=== PATIENT | male | born 1990 | race Caucasian/White ===

== ENCOUNTER 2018-09-01 14:51 | Inpatient (IN) ==
--- NOTE | 2018-09-01 14:53 | Emergency Department Note ---
ED Disposition Clinical Impression: Hyperkalemia Diabetic ketoacidosis Qualifiers: Diabetes mellitus type: type 1 Diabetes mellitus complication detail: without coma Qualified Code(s): E10.10 - Type 1 diabetes mellitus with ketoacidosis without coma Disposition: Admitted As Inpatient Condition on Discharge: Serious - Critical Care Critical Care Time: Yes Attestation: On , the high probability of a clinically significant, sudden or life threatening deterioration of the following system(s) required my full and direct attention, intervention and personal management. The time I documented below is in addition to time spent performing reported procedures but includes the following listed in this critical care notation. Total Critical Care Time: 35 Vital system(s) involved:: Metabolic Failure My critical care processes included: Assessment & monitoring of V/S, Initial and Re-exams, Data Review/Interpretation, Coordinating Care, Medication Orders and management, Documentation Medical Decision Making - Jean Inquiry Pt receiving controlled substance: No Vital Signs: 09/01/18 14:52 09/01/18 15:22 09/01/18 16:08 Temperature 98.1 F Temperature Source Oral Pulse Rate [Left Radial] 128 H 128 H 120 H Respiratory Rate 28 H 16 Blood Pressure [Right Arm] 156/85 H 143/99 H 139/73 Blood Pressure Mean [Right Arm] 108 113 95 Blood Pressure Source [Right Arm] Automatic Cuff Automatic Cuff Automatic Cuff Blood Pressure Position [Right Arm] Sitting Sitting Sitting 02 Sat by Pulse Oximetry 98 99 Oxygen Delivery Method Room Air Room Air 09/01/18 16:31 09/01/18 16:36 Temperature Temperature Source Pulse Rate [Left Radial] 115 H 115 H Respiratory Rate Blood Pressure [Right Arm] 132/74 119/64 Blood Pressure Mean [Right Arm] 93 82 Blood Pressure Source [Right Arm] Automatic Cuff Blood Pressure Position [Right Arm] Sitting Sitting 02 Sat by Pulse Oximetry Oxygen Delivery Method - Lab Data Lab Results 09/01/18 14:50: WBC 25.1 H*, RBC 5.62, Hgb 18.5 H*, Hct 53.9 H, MCV 96.0 H, MCH 32.9 H, MCHC 34.3, RDW 12.9, Plt Count 335, MPV 8.2, Neut % (Auto) 83.9 H, Lymph % (Auto) 9.1 L, [place] % (Auto) 6.5, Eos % (Auto) 0.1, Baso % (Auto) 0.4, Neut # (Auto) 21.1 H, Lymph # (Auto) 2.3, [place] # (Auto) 1.6 H, Eos # (Auto) 0.0, Baso # (Auto) 0.1, Total Counted 100, Neutrophils % (Manual) 82 H, Band Neutrophils % 7.0, Lymphocytes % (Manual) 7 L, Monocytes % (Manual) 4, Platelet Estimate Normal, RBC Morphology Normal 09/01/18 14:50: Sodium 128 L, Potassium 6.0 H, Chloride 87 L, Carbon Dioxide 8 L*, Anion Gap 39.0 H, BUN 34 H, Creatinine 2.20 H, Estimated Creat Clear 47, Estimated GFR 36 L, Est GFR ( Amer) 43 L, Glucose 780 H*, Calcium 9.6, T otal Bilirubin 0.8, AST 48 H, ALT 189 H, Alkaline Phosphatase 92, Troponin I < 0.02, Total Protein 8.8 H, Albumin 4.9, Globulin 3.9 H, Albumin/Globulin Ratio 1.3, Acetone Level Moderate 09/01/18 14:50: Phosphorus 7.8 H, Magnesium 2.7 H, Lipase 40 L 09/01/18 15:02: VBG pH 6.99 L, VBG pCO2 29.0 L, VBG pO2 108.0 H, VBG HCO3 6.9 L, VBG Total CO2 7.8 L, VBG O2 Saturation 96.8 H, VBG Base Excess -24.5 L 09/01/18 15:38: Urine Opiates Screen Negative, Urine Methadone Screen Negative, Ur Barbituates Screen Negative, Ur Phencyclidine Scrn Negative, Ur Amphetamines Screen Negative, U Benzodiazepines Scrn Negative, Urine Cocaine Screen Negative, U Marijuana (THC) Screen Negative 09/01/18 15:38: Urine Color Yellow, Urine Appearance Clear, Urine pH 6.0, Ur Specific [place] 1.025, Urine Protein Negative, Urine Glucose (UA) 3+, Urine Ketones 3+, Urine Blood Trace-i, Urine Nitrate Negative, Urine Bilirubin Negative, Urine Urobilinogen 0.2, Ur Leukocyte Esterase Negative, Urine WBC Occasional, Ur Squamous Epith Cells Occasional, Urine Bacteria Trace 09/01/18 15:50: Lactate 5.3 H Result diagrams: 09/01/18 14:50 09/01/18 14:50 Orders (Tests/Meds): ED MEDICATIONS Generic Name Dose Route Start Last Admin Trade Name Freq PRN Reason Stop Dose Admin Insulin Human Regular 100 unit 101 mls @ 6.643 mls/hr 09/01/18 15:30 09/01/18 16:05 / Sodium Chloride IV 10/01/18 15:29 6.643 mls/hr .[id number] SHOAIB Administration Protocol 0.1 UNITS/KG/HR Sodium Chloride 1,000 mls @ 999 mls/hr 09/01/18 15:45 09/01/18 15:51 Sod Chlor 0.9% 1000ml Bag IV 09/01/18 16:45 999 mls/hr .Q1H1M SHOAIB Administration Sodium Chloride 1,000 mls @ 150 mls/hr 09/01/18 16:15 09/01/18 16:25 Sod Chlor 0.9% 1000ml Bag IV 10/01/18 16:14 150 mls/hr .[id number] SHOAIB Administration Discontinued Medications Generic Name Dose Route Start Last Admin Trade Name Freq PRN Reason Stop Dose Admin Sodium Chloride 1,000 mls @ 999 mls/hr 09/01/18 15:00 09/01/18 15:02 Sod Chlor 0.9% 1000ml Bag IV 09/01/18 16:00 999 mls/hr .Q1H1M SHOAIB Administration Insulin Human Regular 5 unit 09/01/18 15:28 09/01/18 15:40 Humulin R Insulin 100 Units/Ml 10ml Vial IVP 09/01/18 15:29 5 unit ONCE ONE Administration Ondansetron HCl 4 mg 09/01/18 15:25 09/01/18 15:32 Zofran 4mg/2ml Vial IV 09/01/18 15:26 4 mg ONCE ONE Administration Sodium Bicarbonate 50 meq 09/01/18 15:27 09/01/18 15:50 Sodium Bicarbonate 8.4% 50ml Syringe IV 09/01/18 15:28 50 meq ONCE ONE Administration ORDERS Category Date Time Status XR chest portable Stat Exams 09/01/18 14:58 Taken Blood Culture Stat Micro 09/01/18 15:50 Received - Radiology Data #1 Image(s): Chest Image Reviewed: Yes I reviewed the patient's radiology image Preliminary Findings: Normal/NAD - ECG Data Tracing #1 EKG interpreted by Gerard Bravo MD: Rhythm: sinus tachycardia Rate: 128 [place]: normal Ectopy: none Conduction: normal ST Segment Changes: none T Wave Changes: Peaked in leads V2 through V4 Q Waves: none No evidence of acute ischemia or injury - Physician Consults Physician Consulted: Ashish Time: 16:20 Reason -: Admission Comment/Response: Agrees to admit the patient to the hospital. We discussed the patient's clinical information, including history, exam, laboratory and radiology results and ED course. Per hospital procedure, I will write temporary bridge inpatient orders on the patient. Specific orders requested by the admitting physician: DKA protocol, admit to stepdown Medical Decision Narrative: Records obtained from [facility] emergency department from visit last night. No lab results received. We called back to [facility] and they report that no lab work was done. Review of hospital records shows prior admit here 12/18/16 for DKA - presented with chest pain and high BS General Adult HPI - General Chief complaint: Hyper/Hypoglycemia Stated complaint: Chest Pain Time Seen by Provider: 09/01/18 14:53 - History of Present Illness HPI narrative: Patient states he has been sick for about 3 to 4 days. He is vomiting intractably and feels dehydrated. He is an insulin-dependent diabetic and has not used his insulin in 2 days because he has not been able to eat. He has not checked his blood sugar. He hurts from his belt line up to his chest and into his neck. He has had some diarrhea. He says he went to [facility] last night. He says they did an EKG and an x-ray for his chest pain and gave him a GI cocktail. He says that they chhaya blood, but he says he does not know any results and he does not think they checked his blood sugar. He does not currently have a primary care doctor, he says he has not had one for couple of years. He is on sliding scale insulin and 12 units of insulin twice a day. He takes low-dose aspirin daily. He is a smoker. He also admits to marijuana use. Denies other drug use or alcohol use. - Related Data Home Medications Medication Instructions Recorded Confirmed Insulin NPH Human Isophane 12 unit SQ BID 09/01/18 09/01/18 [Novolin N] Insulin Regular, Human [Novolin R] 0 unit IJ AC 09/01/18 09/01/18 Allergies Allergy/AdvReac Type Severity Reaction Status Date / Time No Known Drug Allergies Allergy Unknown -- Verified 09/01/18 15:01 [facility] History - Hepatitis A Screen Attestation statement:: This patient has been screened for Hepatitis A risk factors. I have reviewed the patient's past medical history: Yes ROS Obtained: Yes All systems reviewed & no additional complaints - Constitutional Constitutional: Denies fever(s) - Cardiovascular Cardiovascular: Reports chest pain - Gastrointestinal Gastrointestingal: Reports: abdominal pain, diarrhea, nausea, vomiting - Genitourinary Male Genitourinary: Denies difficulty urinating Physical Exam - General General appearance: alert, anxious - Head Head exam: atraumatic, normocephalic - Eye Eye exam: Present: normal appearance, EOMI - ENT ENT exam: Present: mucous membranes dry - Neck Neck exam: Present: normal inspection, trachea midline - Chest Chest inspection: Present: normal inspection, symmetric chest wall rise - Respiratory Respiratory exam: Present: normal lung sounds bilaterally. Absent: respiratory distress - Cardiovascular Cardiovascular exam: Present: normal rhythm, tachycardia, normal heart sounds - Abdominal Exam Abdominal exam: Present: soft, tenderness, normal bowel sounds. Absent: guarding, rebound Abdominal tenderness: Present: diffuse - Extremities Exam Extremities exam: Present: normal inspection, full ROM - Neurological Exam Neurological exam: Present: alert, oriented X3 - Psychiatric Psychiatric exam: Present: anxious - Skin Skin exam: Present: warm, dry
[2018-09-01 15:06] LABS: Basophils # 0.1 K/mm3 (0-0.2); Basophils % 0.4 % (0.1-2.0); Eosinophils % 0.1 % (0.1-12.0)
[2018-09-01 15:11] LABS: Hematocrit 53.9 % (42.0-52.0); Lymphocytes # 2.3 K/mm3 (0.7-4.5); Lymphocytes % 9.1 % (10-50); Mean Corpuscular HGB Conc 34.3 g/dL (31.8-35.4); Mean Platelet Volume 8.2 fl (7.4-10.4); Monocytes # 1.6 K/mm3 (0.1-1.0); Monocytes % 6.5 % (1.7-9.3); Neutrophils # 21.1 K/mm3 (1.8-7.8); Neutrophils % 83.9 % (37.0-80.0); Platelet Count 335 K/mm3 (142-424); Red Blood Count 5.62 M/mm3 (4.60-6.20); Red Cell Distribution Width 12.9 % (11.5-17.5); White Blood Count 25.1 K/mm3 (4.8-10.8)
[2018-09-01 15:13] LABS: VBG Base Excess -24.5 mmol/L (-2.4-2.3); VBG HCO3 6.9 mmol/L (23-30); VBG Oxygen Saturation 96.8 % (50-70); VBG Total CO2 7.8 mmol/L (23-27)
[2018-09-01 15:18] LABS: VBG PH 6.99 mmol/L (7.31-7.41)
[2018-09-01 15:20] LABS: Alanine Aminotransferase 189 U/L (12-78); Albumin Level 4.9 gm/dL (3.4-5.0); Albumin/Globulin Ratio 1.3 (1.1-1.8); Alkaline Phosphatase 92 U/L (46-116); Aspartate Amino Transferase 48 U/L (15-37); Bilirubin,Total 0.8 mg/dL (0.2-1.0); Blood Urea Nitrogen 34 mg/dL (7-18); Calcium 9.6 mg/dL (8.5-10.1); Chloride 87 mmol/L (98-107); Globulin 3.9 gm/dl (1.3-3.2); Sodium 128 mmol/L (136-145); Total Protein,Serum 8.8 gm/dL (6.4-8.2)
[2018-09-01 15:22] LABS: Hemoglobin 18.5 g/dL (14.1-18.0)
[2018-09-01 15:24] LABS: Carbon Dioxide 8 mmol/L (21.0-32.0)
[2018-09-01 15:29] LABS: Acetone, Serum (Rapid) Moderate (None Detect)
[2018-09-01 15:42] LABS: Glucose 780 mg/dL (74-106); Phosphorous 7.8 mg/dL (2.4-4.9)
[2018-09-01 16:00] LABS: Lymphocytes % 7 % (10-50); Monocytes % 4 % (2-9); Neutrophils % 82 % (42-76); RBC Morphology Normal; Total Cells Counted 100
[2018-09-01 16:06] LABS: Microscopic, Urine URINE MICROSCOPIC (MICROSCOPIC)
[2018-09-01 16:10] LABS: Appearance,Urine CLEAR (Clear); Bilirubin,Urine Negative (Negative); Blood, Urine TRACE-I (Negative); Color,Urine YELLOW (Yellow); Glucose,Urine (UA) 3+ (Negative); Ketones,Urine 3+ (Negative); Leukocyte Esterase,Urine Negative (Negative); Protein,Urine Negative (Negative); Specific Gravity, Urine 1.025 (1.005-1.030); Urobilinogen,Urine 0.2 EU/dl (0.2)
[2018-09-01 16:25] LABS: WBC,Urine Occasional #/hpf (0-3)
[2018-09-01 16:26] LABS: Bacteria,Urine Trace /lpf; Squamous Epithelial Cell,Urine Occasional #/hpf (0-5)
[2018-09-01 16:31] LABS: Amphetamine/Metha Screen,Urine Negative ng/mL (<1000); Barbiturates Screen,Urine Negative ng/mL (<200); Benzodiazepines Screen,Urine Negative ng/mL (<200); Cannabinoid Screen,Urine Negative ng/mL (<50); Cocaine Screen,Urine Negative ng/mL (<300); Methadone Screen,Urine Negative ng/mL (<300); Opiate Screen,Urine Negative ng/mL (<300); Phencyclidine Screen,Urine Negative ng/mL (<25)
--- NOTE | 2018-09-01 16:36 | History & Physical Report ---
*Admission Date: 09/01/18 <Fede Fosterjenna Gambino 09/01/18 17:26> *Chief complaint: vomiting, diarrhea, abdominal pain <Nataly Foster 09/02/18 08:38> DKA <Nimisha Lim 09/01/18 16:36> *History of present illness: Mr. Naranjo is a 28-year-old male with type 1 diabetes who has had 3 days of nausea, vomiting, fever, epigastric abdominal pain, and diarrhea. His states he has been so weak he could hardly get up. He has no primary care physician and currently buys Novolin R and Novolin N at [facility]. He takes 12 units of Novolin R twice daily and uses Novolin N on a sliding scale. She states his sugars have been stable and running in the 100s until he began feeling poorly. He did go to [place] emergency room yesterday and was told he had reflux and was given a GI cocktail and sent home. Apparently he had labs drawn but according to the ER note, no labs were done. His symptoms continued and he was so weak he could hardly stand, therefore she transported him to [facility] for evaluation. His glucose was found to be in the 700's and he was in DKA. He was started on IV fluids and an insulin drip and will be admitted. <CristianNataly 09/02/18 08:38> [facility] History I have reviewed the patient's past medical history: Yes <JesusbrendanFedea 09/01/18 17:26> Medical History: Reports:: Diabetes Mellitus Type 1 <Nataly Foster 09/02/18 08:38> Reports:: Diabetes Mellitus Type 1 <Nimisha Lim 09/01/18 16:36> *Have you ever received a pneumonia vaccine?: No <Nataly Foster 09/01/18 17:26> No <Nimisha Lim 09/01/18 16:36> *Have you received a flu vaccine this season?: No <Nataly Foster 09/01/18 17:26> No <Nimisha Lim 09/01/18 16:36> Comment:: history of drug abuse <Nimisha Lim 09/01/18 16:48> - *Social History Smoking Status: Current every day smoker <Nataly Foster 09/01/18 17:26> Current every day smoker <Nimisha Lim 09/01/18 16:36> Tobacco Type: cigarettes <Nataly Foster 09/01/18 17:26> cigarettes <Nimisha Lim 09/01/18 16:36> # Packs/Day (cigarettes): 0 <Nimisha Lim 09/01/18 16:36> Alcohol Intake: never <Nataly Foster 09/01/18 17:26> never <Nimisha Lim 09/01/18 16:36> *Occupational Status:: other <Nimisha Lim 09/01/18 16:36> *Travel in the last 8 weeks: None <Nimisha Lim 09/01/18 16:36> - Psychiatric History Expresses thoughts of harming self/others: None <Nimisha Lim 09/01/18 16:36> Suicide Plan Description: No Plan <Nimisha Lim 09/01/18 16:36> Family Hx:: Heart Attack <Nataly Foster 09/01/18 17:26> Coronary Artery Disease, Diabetes <Nimisha Lim 09/01/18 16:48> Review of Systems - Constitutional Reports body ache(s), Reports chills, Reports fever(s), Reports weakness <Fede Fostera 09/01/18 17:26> - Eyes Denies blurry vision, Denies double vision <CirstianNataly 09/01/18 17:26> - ENT Denies nasal congestion, Denies sore throat [facility] 17:26> - *Cardiovascular Reports chest pain, Reports rapid, pounding, or irregular heartbeat, Denies leg swelling <[facility] 09/01/18 17:26> - *Respiratory Denies chest congestion, Denies cough <CristianNataly 09/01/18 17:26> - *Gastrointestinal Reports abdominal pain, Reports loose stools, Reports nausea, Reports vomiting <CristianNataly 09/01/18 17:26> Reports nausea, Reports vomiting <RaphaelNimisha - 05/29/19 16:40> - *Genitourinary Reports decreased urination, Denies difficulty urinating, Denies painful urination <Nataly Foster - 09/01/18 17:26> - *Musculoskeletal Reports body aches, Denies joint pain <Nataly Foster - 09/01/18 17:26> - *Neurologic Reports headache(s), Reports dizziness, Reports weakness <Nataly Foster - 09/01/18 17:26> Meds Home Medications Medication Instructions Recorded Confirmed Type Insulin NPH Human Isophane 12 unit SQ BID 09/01/18 09/01/18 History [Novolin N] Insulin Regular, Human [Novolin R] 0 unit SQ AC 09/01/18 09/02/18 History <Nataly Foster 09/02/18 08:41> Allergies Allergy/AdvReac Type Severity Reaction Status Date / Time No Known Drug Allergies Allergy Unknown -- Verified 09/01/18 15:01 <Nataly Foster 09/02/18 08:41> Exam Vital signs and Labs for Last 24 Hours: Temp Pulse Resp BP Pulse Ox 98.1 F 115 H 16 132/74 99 09/01/18 14:52 09/01/18 16:31 09/01/18 16:08 09/01/18 16:31 09/01/18 16:08 Laboratory Results - last 24 hr 09/01/18 14:50: WBC 25.1 H*, RBC 5.62, Hgb 18.5 H*, Hct 53.9 H, MCV 96.0 H, MCH 32.9 H, MCHC 34.3, RDW 12.9, Plt Count 335, MPV 8.2, Neut % (Auto) 83.9 H, Lymph % (Auto) 9.1 L, [place] % (Auto) 6.5, Eos % (Auto) 0.1, Baso % (Auto) 0.4, Neut # (Auto) 21.1 H, Lymph # (Auto) 2.3, [place] # (Auto) 1.6 H, Eos # (Auto) 0.0, Baso # (Auto) 0.1, Total Counted 100, Neutrophils % (Manual) 82 H, Band Neutrophils % 7.0, Lymphocytes % (Manual) 7 L, Monocytes % (Manual) 4, Platelet Estimate Normal, RBC Morphology Normal 09/01/18 14:50: Sodium 128 L, Potassium 6.0 H, Chloride 87 L, Carbon Dioxide 8 L*, Anion Gap 39.0 H, BUN 34 H, Creatinine 2.20 H, Estimated Creat Clear 47, Estimated GFR 36 L, Est GFR ( Amer) 43 L, Glucose 780 H*, Calcium 9.6, Total Bilirubin 0.8, AST 48 H, ALT 189 H, Alkaline Phosphatase 92, Troponin I < 0.02, Total Protein 8.8 H, Albumin 4.9, Globulin 3.9 H, Albumin/Globulin Ratio 1.3, Acetone Level Moderate 09/01/18 14:50: Phosphorus 7.8 H, Magnesium 2.7 H, Lipase 40 L 09/01/18 15:02: VBG pH 6.99 L, VBG pCO2 29.0 L, VBG pO2 108.0 H, VBG HCO3 6.9 L, VBG Total CO2 7.8 L, VBG O2 Saturation 96.8 H, VBG Base Excess -24.5 L 09/01/18 15:38: Urine Opiates Screen Negative, Urine Methadone Screen Negative, Ur Barbituates Screen Negative, Ur Phencyclidine Scrn Negative, Ur Amphetamines Screen Negative, U Benzodiazepines Scrn Negative, Urine Cocaine Screen Negative, U Marijuana (THC) Screen Negative 09/01/18 15:38: Urine Color Yellow, Urine Appearance Clear, Urine pH 6.0, Ur Specific [place] 1.025, Urine Protein Negative, Urine Glucose (UA) 3+, Urine Ketones 3+, Urine Blood Trace-i, Urine Nitrate Negative, Urine Bilirubin Negative, Urine Urobilinogen 0.2, Ur Leukocyte Esterase Negative, Urine WBC Occasional, Ur Squamous Epith Cells Occasional, Urine Bacteria Trace 09/01/18 15:50: Lactate 5.3 H <Nimisha Lim - 09/01/18 16:36> I & O for Last 24 hours: <Nataly Foster - 09/02/18 08:41> Intake & Output 08/30/18 08/31/18 09/01/18 09/02/18 11:59 11:59 11:59 11:59 Weight 145 lb <Nimisha Lim - 09/01/18 16:36> - Constitutional no acute distress <Nataly Foster 09/01/18 17:26> - *Routine HEENT Exam Head: Present: normocephalic <[facility] 09/01/18 17:26> Eye: Present: EOMI, PERRL <[facility] 09/01/18 17:26> ENT: Present: mucous membranes dry <Nataly Foster 09/01/18 17:26> - *Routine Neck Exam Present: supple. Absent: lymphadenopathy <Nataly Foster 09/01/18 17:26> - *Routine Respiratory Exam Present: CTA bilaterally <[facility] 09/01/18 17:26> - *Routine Cardiovascular Exam Present: tachycardia <[facility] 09/01/18 17:26> - *Routine Abdominal Exam Present: soft, normoactive bowel sounds, tenderness (epigastric) <[facility] 09/01/18 17:26> - *Routine Extremities Exam Absent: cyanosis, clubbing, edema <[facility] 09/01/18 17:26> - *Routine Skin Exam Present: warm. Absent: rash <[facility] 09/01/18 17:26> - *Routine Neurological Exam Present: alert, oriented X3 <[facility] 09/01/18 17:26> H&P: Result - Impressions CXR - pending <Nataly Foster 09/02/18 08:39> Assessment and Plan (1) Diabetic ketoacidosis Current visit: Yes Status: Acute Qualifiers: Diabetes mellitus type: type 1 Diabetes mellitus complication detail: without coma Qualified Code(s): E10.10 - Type 1 diabetes mellitus with ketoacidosis without coma Category: Medical Code(s): E11.10 - Type 2 diabetes mellitus with ketoacidosis without coma (2) Metabolic acidosis Current visit: Yes Status: Acute Category: Medical Code(s): E87.2 - Acidosis (3) Nausea and vomiting Current visit: Yes Status: Acute Category: Medical Code(s): R11.2 - Nausea with vomiting, unspecified (4) Hyperkalemia Current visit: Yes Status: Acute Category: Medical Code(s): E87.5 - Hyperkalemia (5) History of drug abuse Current visit: Yes Status: Acute Category: Medical Code(s): F19.11 - Other psychoactive substance abuse, in remission (6) Diarrhea Current visit: Yes Status: Acute Category: Medical Code(s): R19.7 - Diarrhea, unspecified (7) Leukocytosis Current visit: Yes Status: Acute Category: Medical Code(s): D72.829 - Elevated white blood cell count, unspecified <Nataly Foster - 09/02/18 08:41> (1) Metabolic acidosis Current visit: Yes Status: Acute Category: Medical Code(s): E87.2 - Acidosis (2) Nausea and vomiting Current visit: Yes Status: Acute Category: Medical Code(s): R11.2 - Nausea with vomiting, unspecified (3) Diabetic ketoacidosis Current visit: Yes Status: Acute Qualifiers: Diabetes mellitus type: type 1 Diabetes mellitus complication detail: without coma Qualified Code(s): E10.10 - Type 1 diabetes mellitus with ketoacidosis without coma Category: Medical Code(s): E11.10 - Type 2 diabetes mellitus with ketoacidosis without coma (4) Hyperkalemia Current visit: Yes Status: Acute Category: Medical Code(s): E87.5 - Hyperkalemia (5) History of drug abuse Current visit: Yes Status: Acute Category: Medical Code(s): F19.11 - Other psychoactive substance abuse, in remission <Nimisha Lim - 09/01/18 16:44> - Assessment and plan all Dx Assessment and Plan for all problems:: Patient is still currently in the ER. Will also get a diarrhea panel as he is having diarrhea. <Nataly Foster - 09/01/18 17:26> Insulin gtt protocol; IVF; monitor labs <Nimisha Lim 09/01/18 16:48>
--- NOTE | 2018-09-01 18:33 | Progress Note ---
Internal Medicine - PN: Subj *Date: 09/01/18 *Time: 18:30 Interval history: I saw and examined the patient this evening. I reviewed the chart from December 2016 as well. The patient has not felt well over the past week at least. He has had vomiting over the past several days. Diabetic ketoacidosis was not identified or addressed at the [place] emergency room. He is quite acidotic here. His sugars gradually correcting. His last sugar was 467. He tells me that he takes Novulin N 12 units twice a day and then takes Novulin R with meals. He denies recent drug abuse apart from marijuana. He has been on the job working regularly. Exam Vital signs and Labs for Last 24 Hours: Temp Pulse Resp BP Pulse Ox 98.6 F 113 H 16 127/76 99 09/01/18 17:19 09/01/18 17:44 09/01/18 17:44 09/01/18 17:19 09/01/18 17:44 Laboratory Results - last 24 hr 09/01/18 14:50: WBC 25.1 H*, RBC 5.62, Hgb 18.5 H*, Hct 53.9 H, MCV 96.0 H, MCH 32.9 H, MCHC 34.3, RDW 12.9, Plt Count 335, MPV 8.2, Neut % (Auto) 83.9 H, Lymph % (Auto) 9.1 L, [place] % (Auto) 6.5, Eos % (Auto) 0.1, Baso % (Auto) 0.4, Neut # (Auto) 21.1 H, Lymph # (Auto) 2.3, [place] # (Auto) 1.6 H, Eos # (Auto) 0.0, Baso # (Auto) 0.1, Total Counted 100, Neutrophils % (Manual) 82 H, Band Neutrophils % 7.0, Lymphocytes % (Manual) 7 L, Monocytes % (Manual) 4, Platelet Estimate Normal, RBC Morphology Normal 09/01/18 14:50: Sodium 128 L, Potassium 6.0 H, Chloride 87 L, Carbon Dioxide 8 L*, Anion Gap 39.0 H, BUN 34 H, Creatinine 2.20 H, Estimated Creat Clear 47, Estimated GFR 36 L, Est GFR ( Amer) 43 L, Glucose 780 H*, Calcium 9.6, Total Bilirubin 0.8, AST 48 H, ALT 189 H, Alkaline Phosphatase 92, Troponin I < 0.02, Total Protein 8.8 H, Albumin 4.9, Globulin 3.9 H, Albumin/Globulin Ratio 1.3, Acetone Level Moderate 09/01/18 14:50: Phosphorus 7.8 H, Magnesium 2.7 H, Lipase 40 L 09/01/18 15:02: VBG pH 6.99 L, VBG pCO2 29.0 L, VBG pO2 108.0 H, VBG HCO3 6.9 L, VBG Total CO2 7.8 L, VBG O2 Saturation 96.8 H, VBG Base Excess -24.5 L 09/01/18 15:38: Urine Opiates Screen Negative, Urine Methadone Screen Negative, Ur Barbituates Screen Negative, Ur Phencyclidine Scrn Negative, Ur Amphetamines Screen Negative, U Benzodiazepines Scrn Negative, Urine Cocaine Screen Negative, U Marijuana (THC) Screen Negative 09/01/18 15:38: Urine Color Yellow, Urine Appearance Clear, Urine pH 6.0, Ur Specific [place] 1.025, Urine Protein Negative, Urine Glucose (UA) 3+, Urine Ketones 3+, Urine Blood Trace-i, Urine Nitrate Negative, Urine Bilirubin Negative, Urine Urobilinogen 0.2, Ur Leukocyte Esterase Negative, Urine WBC Occasional, Ur Squamous Epith Cells Occasional, Urine Bacteria Trace 09/01/18 15:50: Lactate 5.3 H 09/01/18 16:53: POC Glucose 511 H* 09/01/18 17:32: POC Glucose 457 H* I & O for Last 24 hours: Intake & Output 08/30/18 08/31/18 09/01/18 09/02/18 11:59 11:59 11:59 11:59 Weight 139 lb 3 oz - Constitutional Comments: Acutely ill. He is thin. - *Routine HEENT Exam Eye: Present: PERRL ENT: Present: mucous membranes dry (Tongue is dry) - *Routine Respiratory Exam Present: CTA bilaterally - *Routine Cardiovascular Exam Present: tachycardia (No ectopics) - *Routine Abdominal Exam Present: soft. Absent: tenderness - *Routine Extremities Exam Absent: edema - *Routine Neurological Exam Present: alert (Though acutely ill.), oriented X3 Assessment and Plan (1) Diabetic ketoacidosis Current visit: Yes Status: Acute Qualifiers: Diabetes mellitus type: type 1 Diabetes mellitus complication detail: without coma Qualified Code(s): E10.10 - Type 1 diabetes mellitus with ketoacidosis without coma Category: Medical Code(s): E11.10 - Type 2 diabetes mellitus with ketoacidosis without coma (2) Metabolic acidosis Current visit: Yes Status: Acute Category: Medical Code(s): E87.2 - Acidosis (3) Nausea and vomiting Current visit: Yes Status: Acute Category: Medical Code(s): R11.2 - Nausea with vomiting, unspecified (4) Hyperkalemia Current visit: Yes Status: Acute Category: Medical Code(s): E87.5 - Hyperkalemia (5) History of drug abuse Current visit: Yes Status: Acute Category: Medical Code(s): F19.11 - Other psychoactive substance abuse, in remission (6) Diarrhea Current visit: Yes Status: Acute Category: Medical Code(s): R19.7 - Diarrhea, unspecified (7) Leukocytosis Current visit: Yes Status: Acute Category: Medical Code(s): D72.829 - Elevated white blood cell count, unspecified - Assessment and plan all Dx Assessment and Plan for all problems:: He is receiving an insulin drip. I have ordered 1 dose of 10 units of Levemir subcutaneously. Addendum: I have not yet signed the H&P due to computer issues with the H&P.
[2018-09-01 18:55] LABS: Anion Gap 25.4 mEq/L (5-15)
[2018-09-01 23:11] LABS: Anion Gap 20.2 mEq/L (5-15)
[2018-09-02 05:44] LABS: Anion Gap 15.7 mEq/L (5-15); Calcium 7.6 mg/dL (8.5-10.1)
--- NOTE | 2018-09-02 07:30 | Pharmacy Consult Notes ---
[facility] Pharmacy VTE Monitoring - Patient Demographics Admission date: 09/01/18 Report Date: 09/02/18 Time: 07:30 Allergies/Adverse Reactions: Patient Allergies No Known Drug Allergies Allergy (Unknown, Verified 09/01/18 15:01) -- Height: 1.85 m Weight: 62.397 kg Patient Problems: Current Active Problems (Updated 09/01/18 @ 17:26 by TYRELL Rodriguez) Diabetic ketoacidosis (Acute) Hyperkalemia (Acute) Metabolic acidosis (Acute) Nausea and vomiting (Acute) History of drug abuse (Acute) Diarrhea (Acute) Leukocytosis (Acute) - VTE Risk Labs: VTE Related Lab Results Hgb 18.5 g/dL (14.1-18.0) H* 09/01/18 14:50 Hct 53.9 % (42.0-52.0) H 09/01/18 14:50 Plt Count 335 K/mm3 (142-424) 09/01/18 14:50 BUN 23 mg/dL (7-18) H 09/02/18 04:45 Creatinine 1.34 mg/dL (0.70-1.30) H 09/02/18 04:45 Estimated Creat Clear 73 mL/min (50-200) 09/02/18 04:45 Was VTE Risk Assessment Performed: Yes VTE Score: 1 VTE Risk Level: Very Low Risk - Prophylaxis VTE Prophylaxis Ordered?: Yes Types of VTE Prophylaxis: TEDS Knee High Location of Applied Device: Bilateral Lower Extremeties - VTE Diagnosis Confirmed Treatment or plan recommended: Continue Current Treatment
--- NOTE | 2018-09-02 08:46 | Progress Note ---
Internal Medicine - PN: Subj *Date: 09/02/18 *Time: 08:42 Interval history: Patient states he has had no more vomiting but is still very nauseated. He does not feel like eating this morning. He continues to have abdominal pain that radiates up into the chest. He has not had any further diarrhea. His glucose has improved. Exam Vital signs and Labs for Last 24 Hours: Temp Pulse Resp BP Pulse Ox 99 F 90 15 113/59 L 98 09/02/18 04:00 09/02/18 08:00 09/02/18 06:00 09/02/18 06:00 09/02/18 06:00 Laboratory Results - last 24 hr 09/01/18 14:50: WBC 25.1 H*, RBC 5.62, Hgb 18.5 H*, Hct 53.9 H, MCV 96.0 H, MCH 32.9 H, MCHC 34.3, RDW 12.9, Plt Count 335, MPV 8.2, Neut % (Auto) 83.9 H, Lymph % (Auto) 9.1 L, [place] % (Auto) 6.5, Eos % (Auto) 0.1, Baso % (Auto) 0.4, Neut # (Auto) 21.1 H, Lymph # (Auto) 2.3, [place] # (Auto) 1.6 H, Eos # (Auto) 0.0, Baso # (Auto) 0.1, Total Counted 100, Neutrophils % (Manual) 82 H, Band Neutrophils % 7.0, Lymphocytes % (Manual) 7 L, Monocytes % (Manual) 4, Platelet Estimate Normal, RBC Morphology Normal 09/01/18 14:50: Sodium 128 L, Potassium 6.0 H, Chloride 87 L, Carbon Dioxide 8 L*, Anion Gap 39.0 H, BUN 34 H, Creatinine 2.20 H, Estimated Creat Clear 47, Estimated GFR 36 L, Est GFR ( Amer) 43 L, Glucose 780 H*, Calcium 9.6, Total Bilirubin 0.8, AST 48 H, ALT 189 H, Alkaline Phosphatase 92, Troponin I < 0.02, Total Protein 8.8 H, Albumin 4.9, Globulin 3.9 H, Albumin/Globulin Ratio 1.3, Acetone Level Moderate 09/01/18 14:50: Phosphorus 7.8 H, Magnesium 2.7 H, Lipase 40 L 09/01/18 15:02: VBG pH 6.99 L, VBG pCO2 29.0 L, VBG pO2 108.0 H, VBG HCO3 6.9 L, VBG Total CO2 7.8 L, VBG O2 Saturation 96.8 H, VBG Base Excess -24.5 L 09/01/18 15:38: Urine Opiates Screen Negative, Urine Methadone Screen Negative, Ur Barbituates Screen Negative, Ur Phencyclidine Scrn Negative, Ur Amphetamines Screen Negative, U Benzodiazepines Scrn Negative, Urine Cocaine Screen Negative, U Marijuana (THC) Screen Negative 09/01/18 15:38: Urine Color Yellow, Urine Appearance Clear, Urine pH 6.0, Ur Specific [place] 1.025, Urine Protein Negative, Urine Glucose (UA) 3+, Urine Ketones 3+, Urine Blood Trace-i, Urine Nitrate Negative, Urine Bilirubin Negative, Urine Urobilinogen 0.2, Ur Leukocyte Esterase Negative, Urine WBC Occasional, Ur Squamous Epith Cells Occasional, Urine Bacteria Trace 09/01/18 15:50: Lactate 5.3 H 09/01/18 16:53: POC Glucose 511 H* 09/01/18 17:32: POC Glucose 457 H* 09/01/18 18:40: Sodium 137, Potassium 4.4 D, Chloride 99, Carbon Dioxide 17 L D , Anion Gap 25.4 H, BUN 30 H, Creatinine 1.63 H D, Estimated Creat Clear 60, Estimated GFR 51 L, Est GFR ( Amer) 61 D, Glucose 368 H D, Calcium 8.0 L D 09/01/18 19:55: Lactate 1.1 09/01/18 20:00: POC Glucose 256 H 09/01/18 22:02: POC Glucose 171 H 09/01/18 22:45: Sodium 139, Potassium 4.2, Chloride 103, Carbon Dioxide 20 L, Anion Gap 20.2 H, BUN 27 H, Creatinine 1.37 H, Estimated Creat Clear 72, Estimated GFR 62, Est GFR ( Amer) 75 D, Glucose 175 H D, Calcium 8.0 L 09/02/18 00:09: POC Glucose 146 H 09/02/18 01:00: Sodium 138, Potassium 4.0, Chloride 103, Carbon Dioxide 22, Anion Gap 17.0 H, BUN 25 H, Creatinine 1.40 H, Estimated Creat Clear 70, Estimated GFR 60, Est GFR ( Amer) 73, Glucose 186 H, Calcium 8.0 L 09/02/18 02:01: POC Glucose 260 H 09/02/18 04:08: POC Glucose 236 H 09/02/18 04:45: Sodium 138, Potassium 3.7, Chloride 105, Carbon Dioxide 21, Anion Gap 15.7 H, BUN 23 H, Creatinine 1.34 H, Estimated Creat Clear 73, Estimated GFR 63, Est GFR ( Amer) 77, Glucose 228 H D, Calcium 7.6 L 09/02/18 04:45: Acetone Level Large 09/02/18 06:03: POC Glucose 167 H I & O for Last 24 hours: Intake & Output 08/30/18 08/31/18 09/01/18 09/02/18 11:59 11:59 11:59 11:59 Intake Total 3066 / 3066 Balance 3066 / 3066 Weight 137 lb 9 oz - Constitutional no acute distress - *Routine Respiratory Exam Present: CTA bilaterally - *Routine Cardiovascular Exam Present: RRR - *Routine Abdominal Exam Present: soft, normoactive bowel sounds, tenderness (diffuse but worse in the epigastric area) - *Routine Extremities Exam Absent: cyanosis, clubbing, edema Assessment and Plan (1) Diabetic ketoacidosis Current visit: Yes Status: Acute Qualifiers: Diabetes mellitus type: type 1 Diabetes mellitus complication detail: without coma Qualified Code(s): E10.10 - Type 1 diabetes mellitus with ketoacidosis without coma Category: Medical Code(s): E11.10 - Type 2 diabetes mellitus with ketoacidosis without coma (2) Metabolic acidosis Current visit: Yes Status: Acute Category: Medical Code(s): E87.2 - Acidosis (3) Nausea and vomiting Current visit: Yes Status: Acute Category: Medical Code(s): R11.2 - Nausea with vomiting, unspecified (4) Hyperkalemia Current visit: Yes Status: Acute Category: Medical Code(s): E87.5 - Hyperkalemia (5) History of drug abuse Current visit: Yes Status: Acute Category: Medical Code(s): F19.11 - Other psychoactive substance abuse, in remission (6) Diarrhea Current visit: Yes Status: Acute Category: Medical Code(s): R19.7 - Diarrhea, unspecified (7) Leukocytosis Current visit: Yes Status: Acute Category: Medical Code(s): D72.829 - Elevated white blood cell count, unspecified - Assessment and plan all Dx Assessment and Plan for all problems:: Patient's acetone level increased during the night. His electrolytes did improve as did his sugar. We will repeat labs this morning and get a CBC, CMP, and acetone level. We will also add Phenergan for nausea.
[2018-09-02 10:25] LABS: Acetone, Serum (Rapid) Moderate (None Detect)
[2018-09-02 10:27] LABS: Basophils % 0.1 % (0.1-2.0); Eosinophils # 0.2 K/mm3 (0.0-0.4); Eosinophils % 1.3 % (0.1-12.0); Hematocrit 39.7 % (42.0-52.0); Lymphocytes # 1.3 K/mm3 (0.7-4.5); Lymphocytes % 10.8 % (10-50); Mean Corpuscular HGB Conc 36.7 g/dL (31.8-35.4); Mean Corpuscular Volume 86.7 fl (80-94); Mean Platelet Volume 7.4 fl (7.4-10.4); Monocytes # 0.6 K/mm3 (0.1-1.0); Monocytes % 5.5 % (1.7-9.3); Neutrophils # 9.5 K/mm3 (1.8-7.8); Neutrophils % 82.2 % (37.0-80.0); Platelet Count 172 K/mm3 (142-424); Red Blood Count 4.58 M/mm3 (4.60-6.20); Red Cell Distribution Width 12.7 % (11.5-17.5); White Blood Count 11.6 K/mm3 (4.8-10.8)
[2018-09-02 10:42] LABS: Alanine Aminotransferase 100 U/L (12-78); Albumin Level 3.1 gm/dL (3.4-5.0); Albumin/Globulin Ratio 1.3 (1.1-1.8); Alkaline Phosphatase 41 U/L (46-116); Anion Gap 15.7 mEq/L (5-15); Aspartate Amino Transferase 23 U/L (15-37); Bilirubin,Total 0.6 mg/dL (0.2-1.0); Blood Urea Nitrogen 18 mg/dL (7-18); Calcium 7.6 mg/dL (8.5-10.1); Carbon Dioxide 21 mmol/L (21.0-32.0); Chloride 106 mmol/L (98-107); Globulin 2.4 gm/dl (1.3-3.2); Glucose 213 mg/dL (74-106); Sodium 139 mmol/L (136-145); Total Protein,Serum 5.5 gm/dL (6.4-8.2)
[2018-09-02 10:59] LABS: Hemoglobin 14.6 g/dL (14.1-18.0)
[2018-09-02 14:57] LABS: Calcium 7.7 mg/dL (8.5-10.1)
[2018-09-02 18:19] LABS: Anion Gap 11.3 mEq/L (5-15); Calcium 7.5 mg/dL (8.5-10.1)
[2018-09-03 07:22] LABS: Anion Gap 6.3 mEq/L (5-15); Calcium 7.7 mg/dL (8.5-10.1)
--- NOTE | 2018-09-03 08:42 | Progress Note ---
Internal Medicine - PN: Subj *Date: 09/03/18 *Time: 08:40 Interval history: Patient is improving. He states he still has some epigastric pain that radiates up into his chest. If he tries to swallow any liquids he says it mckeon down through his throat. His glucose has improved. His hydration is improved as well. Exam Vital signs and Labs for Last 24 Hours: Temp Pulse Resp BP Pulse Ox 97.9 F 74 16 101/66 L 98 09/03/18 04:00 09/03/18 04:00 09/03/18 04:00 09/03/18 04:00 09/03/18 04:00 Laboratory Results - last 24 hr 09/01/18 14:50: POC Glucose > 600 H* 09/02/18 08:08: POC Glucose 136 H 09/02/18 09:18: WBC 11.6 H D, RBC 4.58 L, Hgb 14.6 D, Hct 39.7 L, MCV 86.7, MCH 31.8 H, MCHC 36.7 H, RDW 12.7, Plt Count 172 D, MPV 7.4, Neut % (Auto) 82.2 H, Lymph % (Auto) 10.8, [place] % (Auto) 5.5, Eos % (Auto) 1.3, Baso % (Auto) 0.1, Neut # (Auto) 9.5 H, Lymph # (Auto) 1.3, [place] # (Auto) 0.6, Eos # (Auto) 0.2, Baso # (Auto) 0.0 09/02/18 09:18: Sodium 139, Potassium 3.7, Chloride 106, Carbon Dioxide 21, Anion Gap 15.7 H, BUN 18, Creatinine 1.12, Estimated Creat Clear 87, Estimated GFR 78, Est GFR ( Amer) 94 D, Glucose 213 H, Calcium 7.6 L, Total Bilirubin 0.6, AST 23 D, ALT 100 H D, Alkaline Phosphatase 41 L, Total Protein 5.5 L D, Albumin 3.1 L D, Globulin 2.4, Albumin/Globulin Ratio 1.3, Acetone Level Moderate 09/02/18 10:02: POC Glucose 247 H 09/02/18 11:08: POC Glucose 175 H 09/02/18 13:12: POC Glucose 131 H 09/02/18 14:40: Sodium 141, Potassium 3.0 L, Chloride 108 H, Carbon Dioxide 24, Anion Gap 12.0, BUN 15, Creatinine 1.07, Estimated Creat Clear 91, Estimated GFR 82, Est GFR ( Amer) 100, Glucose 108 H D, Calcium 7.7 L 09/02/18 16:38: POC Glucose 95 09/02/18 18:00: Sodium 140, Potassium 3.3 L, Chloride 108 H, Carbon Dioxide 24, Anion Gap 11.3, BUN 13, Creatinine 1.04, Estimated Creat Clear 93, Estimated GFR 85, Est GFR ( Amer) 103, Glucose 138 H D, Calcium 7.5 L 09/02/18 20:41: POC Glucose 179 H 09/02/18 23:32: POC Glucose 185 H 09/03/18 01:27: POC Glucose 142 H 09/03/18 04:47: POC Glucose 108 09/03/18 06:14: Sodium 141, Potassium 3.3 L, Chloride 108 H, Carbon Dioxide 30 D, Anion Gap 6.3, BUN 10, Creatinine 0.96, Estimated Creat Clear 101, Estimated GFR 93, Est GFR ( Amer) 113, Glucose 92 D, Calcium 7.7 L I & O for Last 24 hours: Intake & Output 08/31/18 09/01/18 09/02/18 09/03/18 11:59 11:59 11:59 11:59 Intake Total 3066 / 3066 3892 / 3892 Output Total 1180 / 1180 Balance 3066 / 3066 2712 / 2712 Weight 137 lb 9 oz 135 lb 2 oz - Constitutional no acute distress - *Routine Respiratory Exam Present: CTA bilaterally - *Routine Cardiovascular Exam Present: RRR - *Routine Abdominal Exam Present: soft, normoactive bowel sounds, tenderness (diffuse but worse in the epigastric area) - *Routine Extremities Exam Absent: cyanosis, clubbing, edema Assessment and Plan (1) Diabetic ketoacidosis Current visit: Yes Status: Acute Qualifiers: Diabetes mellitus type: type 1 Diabetes mellitus complication detail: without coma Qualified Code(s): E10.10 - Type 1 diabetes mellitus with ketoacidosis without coma Category: Medical Code(s): E11.10 - Type 2 diabetes mellitus with ketoacidosis without coma (2) Metabolic acidosis Current visit: Yes Status: Acute Category: Medical Code(s): E87.2 - Acidosis (3) Nausea and vomiting Current visit: Yes Status: Acute Category: Medical Code(s): R11.2 - Nausea with vomiting, unspecified (4) Hyperkalemia Current visit: Yes Status: Acute Category: Medical Code(s): E87.5 - Hyperkalemia (5) History of drug abuse Current visit: Yes Status: Acute Category: Medical Code(s): F19.11 - Other psychoactive substance abuse, in remission (6) Diarrhea Current visit: Yes Status: Acute Category: Medical Code(s): R19.7 - Diarrhea, unspecified (7) Leukocytosis Current visit: Yes Status: Acute Category: Medical Code(s): D72.829 - Elevated white blood cell count, unspecified - Assessment and plan all Dx Assessment and Plan for all problems:: We will recheck labs this morning and will also start on some Protonix IV to see if this helps the epigastric pain, chest pain, and burning when he eats and drinks.
[2018-09-03 09:07] LABS: Basophils % 0.2 % (0.1-2.0); Eosinophils % 0.2 % (0.1-12.0); Hematocrit 35.5 % (42.0-52.0); Lymphocytes # 1.5 K/mm3 (0.7-4.5); Lymphocytes % 21.9 % (10-50); Mean Corpuscular HGB Conc 36.4 g/dL (31.8-35.4); Mean Corpuscular Volume 88.3 fl (80-94); Mean Platelet Volume 7.9 fl (7.4-10.4); Monocytes # 0.4 K/mm3 (0.1-1.0); Monocytes % 6.2 % (1.7-9.3); Neutrophils # 4.8 K/mm3 (1.8-7.8); Neutrophils % 71.4 % (37.0-80.0); Platelet Count 125 K/mm3 (142-424); Red Blood Count 4.02 M/mm3 (4.60-6.20); Red Cell Distribution Width 12.6 % (11.5-17.5); White Blood Count 6.7 K/mm3 (4.8-10.8)
[2018-09-03 09:16] LABS: Hemoglobin 13.1 g/dL (14.1-18.0)
[2018-09-03 13:25] LABS: Amylase 21 U/L (25-115)
[2018-09-03 13:43] LABS: Albumin Level 2.8 gm/dL (3.4-5.0); Bilirubin,Direct 0.2 mg/dL (0.0-0.2); Bilirubin,Indirect 0.4 mg/dL (0.0-0.9); Bilirubin,Total 0.6 mg/dL (0.2-1.0); Total Protein,Serum 5.3 gm/dL (6.4-8.2)
[2018-09-04 06:48] LABS: Anion Gap 10.8 mEq/L (5-15); Calcium 8.1 mg/dL (8.5-10.1)
--- NOTE | 2018-09-04 08:58 | Progress Note ---
Internal Medicine - PN: Subj *Date: 09/04/18 *Time: 08:55 Interval history: He obviously feels better. He slept better. Blood sugars have improved. Chem- 7 from this morning is normal. Potassium is 3.8. Anion gap has normalized. Abdomen is less tender. Ultrasound the gallbladder is pending. He is n.p.o. this morning for that. Exam Vital signs and Labs for Last 24 Hours: Temp Pulse Resp BP Pulse Ox 98.1 F 69 16 110/78 100 09/04/18 04:00 09/04/18 04:00 09/04/18 04:00 09/04/18 04:00 09/04/18 04:00 Laboratory Results - last 24 hr 09/03/18 06:14: WBC 6.7 D, RBC 4.02 L, Hgb 13.1 L D, Hct 35.5 L, MCV 88.3, MCH 32.1 H, MCHC 36.4 H, RDW 12.6, Plt Count 125 L D, MPV 7.9, Neut % (Auto) 71.4, Lymph % (Auto) 21.9, [place] % (Auto) 6.2, Eos % (Auto) 0.2, Baso % (Auto) 0.2, Neut # (Auto) 4.8, Lymph # (Auto) 1.5, [place] # (Auto) 0.4, Eos # (Auto) 0.0, Baso # (Auto) 0.0 09/03/18 06:14: Amylase 21 L, Lipase 56 L 09/03/18 06:14: Total Bilirubin 0.6, Direct Bilirubin 0.2, Indirect Bilirubin 0.4, AST 29 D, ALT 80 H, Alkaline Phosphatase 35 L, Total Protein 5.3 L, Albumin 2.8 L 09/03/18 10:28: POC Glucose 193 H 09/03/18 16:25: POC Glucose 131 H 09/03/18 20:29: POC Glucose 194 H 09/03/18 23:07: POC Glucose 204 H 09/04/18 05:44: POC Glucose 84 09/04/18 05:50: Sodium 143, Potassium 3.8, Chloride 106, Carbon Dioxide 30, Anion Gap 10.8, BUN 10, Creatinine 0.78, Estimated Creat Clear 136, Estimated GFR 119, Est GFR ( Amer) 143 D, Glucose 86, Calcium 8.1 L I & O for Last 24 hours: Intake & Output 09/01/18 09/02/18 09/03/18 09/04/18 11:59 11:59 11:59 11:59 Intake Total 3066 / 3066 4372 / 4372 3604 / 3604 Output Total 1855 / 1855 Balance 3066 / 3066 2517 / 2517 3604 / 3604 Weight 137 lb 9 oz 135 lb 2 oz 150 lb 6 oz Microbiology Reports for the Last 24 Hours: Microbiology 09/01/18 15:50 Blood Blood Culture - Preliminary NO GROWTH AFTER 48 HOURS 09/01/18 15:50 Blood Blood Culture - Preliminary NO GROWTH AFTER 48 HOURS - Constitutional no acute distress Comments: Hydration is good - *Routine HEENT Exam ENT: Present: mucous membranes moist - *Routine Respiratory Exam Present: CTA bilaterally - *Routine Cardiovascular Exam Present: RRR - *Routine Abdominal Exam Present: tenderness (Some right upper quadrant tenderness.). Absent: mass - *Routine Extremities Exam Absent: edema - *Routine Neurological Exam Present: alert, oriented X3 Assessment and Plan (1) Diabetic ketoacidosis Current visit: Yes Status: Acute Qualifiers: Diabetes mellitus type: type 1 Diabetes mellitus complication detail: without coma Qualified Code(s): E10.10 - Type 1 diabetes mellitus with ketoacidosis without coma Category: Medical Code(s): E11.10 - Type 2 diabetes mellitus with ketoacidosis without coma (2) Metabolic acidosis Current visit: Yes Status: Acute Category: Medical Code(s): E87.2 - Acidosis (3) Nausea and vomiting Current visit: Yes Status: Acute Category: Medical Code(s): R11.2 - Nausea with vomiting, unspecified (4) Hyperkalemia Current visit: Yes Status: Acute Category: Medical Code(s): E87.5 - Hyperkalemia (5) History of drug abuse Current visit: Yes Status: Acute Category: Medical Code(s): F19.11 - Other psychoactive substance abuse, in remission (6) Diarrhea Current visit: Yes Status: Acute Category: Medical Code(s): R19.7 - Diarrhea, unspecified (7) Leukocytosis Current visit: Yes Status: Acute Category: Medical Code(s): D72.829 - Elevated white blood cell count, unspecified - Assessment and plan all Dx Assessment and Plan for all problems:: Ultrasound of the gallbladder is pending. He will be discharged today or tomorrow most likely.
--- NOTE | 2018-09-05 10:51 | Progress Note ---
Internal Medicine - PN: Subj *Date: 09/05/18 *Time: 10:48 Interval history: Mr. Naranjo is ready for discharge. Arrangements will be made for a HIDA scan as an outpatient. He will be discharged on omeprazole and hyoscyamine in addition to his insulins. He will follow-up with Dr. Hinojosa as an outpatient. Exam Vital signs and Labs for Last 24 Hours: Temp Pulse Resp BP Pulse Ox 98.2 F 77 16 119/72 100 09/05/18 08:00 09/05/18 08:00 09/05/18 08:00 09/05/18 08:00 09/05/18 08:00 Laboratory Results - last 24 hr 09/04/18 11:22: POC Glucose 214 H 09/04/18 16:08: POC Glucose 171 H 09/04/18 20:11: POC Glucose 77 09/04/18 21:25: POC Glucose 170 H 09/05/18 06:13: POC Glucose 85 I & O for Last 24 hours: Intake & Output 09/02/18 09/03/18 09/04/18 09/05/18 11:59 11:59 11:59 11:59 Intake Total 3066 / 3066 4372 / 4372 3604 / 3604 840 / 840 Output Total 1855 / 1855 Balance 3066 / 3066 2517 / 2517 3604 / 3604 840 / 840 Weight 137 lb 9 oz 135 lb 2 oz 150 lb 6 oz 144 lb 5 oz - Constitutional no acute distress - *Routine HEENT Exam Head: Present: normocephalic Eye: Present: PERRL ENT: Present: mucous membranes moist - *Routine Respiratory Exam Present: CTA bilaterally - *Routine Cardiovascular Exam Present: RRR - *Routine Abdominal Exam Present: soft, tenderness (Only slight right upper quadrant tenderness.). Absent: organomegaly - *Routine Extremities Exam Absent: edema - *Routine Neurological Exam Present: alert, oriented X3 Assessment and Plan (1) Diabetic ketoacidosis Current visit: Yes Status: Acute Qualifiers: Diabetes mellitus type: type 1 Diabetes mellitus complication detail: without coma Qualified Code(s): E10.10 - Type 1 diabetes mellitus with ketoacidosis without coma Category: Medical Code(s): E11.10 - Type 2 diabetes mellitus with ketoacidosis without coma (2) Metabolic acidosis Current visit: Yes Status: Acute Category: Medical Code(s): E87.2 - Acidosis (3) Nausea and vomiting Current visit: Yes Status: Acute Category: Medical Code(s): R11.2 - Nausea with vomiting, unspecified (4) Hyperkalemia Current visit: Yes Status: Acute Category: Medical Code(s): E87.5 - Hyperkalemia (5) Leukocytosis Current visit: Yes Status: Acute Category: Medical Code(s): D72.829 - Elevated white blood cell count, unspecified (6) Cholecystitis without cholelithiasis Current visit: Yes Status: Acute Category: Medical Code(s): K81.9 - Cholecystitis, unspecified (7) Diarrhea Current visit: Yes Status: Acute Category: Medical Code(s): R19.7 - Diarrhea, unspecified (8) History of drug abuse Current visit: Yes Status: Acute Category: Medical Code(s): F19.11 - Other psychoactive substance abuse, in remission - Assessment and plan all Dx Assessment and Plan for all problems:: Omeprazole and hyoscyamine added to regimen. Arrange outpatient HIDA scan. Follow-up by Dr. Hinojosa in [facility]
--- NOTE | 2018-09-08 08:53 | Discharge Summary ---
General - General Admission date:: 09/01/18 Discharge date: 09/05/18 HPI HPI: Mr. Naranjo is a 28-year-old male with type 1 diabetes who had 3 days of nausea, vomiting, fever, epigastric abdominal pain, and diarrhea prior to admission. His stated he had been so weak that he could hardly get up. He had no primary care physician and was buying Novolin R and Novolin N at [facility]. He was taking 12 units of Novolin R twice daily and used Novolin N on a sliding scale. She stated his sugars had been stable and running in the 100s until he began feeling poorly. He did go to [place] emergency room the previous day and was told he had reflux and was given a GI cocktail and sent home. Apparently he had labs drawn but according to the ER note, no labs were done. His symptoms continued and he was so weak he could hardly stand. Therefore his transported him to [facility] for evaluation. His glucose was found to be in the 700's and he was in DKA. He was started on IV fluids and an insulin drip and was admitted. Hospital Course Hospital Course: On admission patient labs revealed a metabolic acidosis with a pH of 6.99, anion gap of 39, blood sugar of 780, BUN of 34 and creatinine of 2.2. He was started on an insulin drip along with IV fluids. He was started on Phenergan for ongoing nausea. The vomiting did cease as did the diarrhea after admission. By 09/02/2018 insulin drip was discontinued with stable blood sugars and he was started on Levemir twice daily. Labs were monitored throughout his stay. He did complain of ongoing epigastric pain with burning in his throat and was started on Protonix IV. 09/04/2018 he was feeling much better. Abdomen was less tender. He had an ultrasound of his gallbladder which revealed distended gallbladder with wall thickening and sludge indicating acalculus cholecystitis. By this time he was eating and drinking satisfactorily. On 09/05/2018 patient was stable to be discharged home in satisfactory condition. He was to remain on PPI of omeprazole, and insulin and would start on hycosamine as well. He was to follow-up with Dr. Hinojosa and have a HIDA scan as an outpatient. Objective Vital signs: Temp Pulse Resp BP Pulse Ox 98.2 F 77 16 119/72 100 09/05/18 08:00 09/05/18 08:00 09/05/18 08:00 09/05/18 08:00 09/05/18 08:00 Narrative: Exam Vital signs and Labs for Last 24 Hours: Temp Pulse Resp BP Pulse Ox 98.2 F 77 16 119/72 100 09/05/18 08:00 09/05/18 08:00 09/05/18 08:00 09/05/18 08:00 09/05/18 08:00 Laboratory Results - last 24 hr 09/04/18 11:22: POC Glucose 214 H 09/04/18 16:08: POC Glucose 171 H 09/04/18 20:11: POC Glucose 77 09/04/18 21:25: POC Glucose 170 H 09/05/18 06:13: POC Glucose 85 I & O for Last 24 hours: Intake & Output 09/02/18 09/03/18 09/04/18 09/05/18 11:59 11:59 11:59 11:59 Intake Total 3066 / 3066 4372 / 4372 3604 / 3604 840 / 840 Output Total 1855 / 1855 Balance 3066 / 3066 2517 / 2517 3604 / 3604 840 / 840 Weight 137 lb 9 oz 135 lb 2 oz 150 lb 6 oz 144 lb 5 oz - Constitutional no acute distress - *Routine HEENT Exam Head: Present: normocephalic Eye: Present: PERRL ENT: Present: mucous membranes moist - *Routine Respiratory Exam Present: CTA bilaterally - *Routine Cardiovascular Exam Present: RRR - *Routine Abdominal Exam Present: soft, tenderness (Only slight right upper quadrant tenderness.). Absent: organomegaly - *Routine Extremities Exam Absent: edema - *Routine Neurological Exam Present: alert, oriented X3 Results Completed studies during hospitalization [Text1]: 09/01/2018 chest x-ray IMPRESSION: Negative chest, no acute finding 09/03/2018 CT of the abdomen IMPRESSION: 1. Periportal edema small amount of ascites and mild splenomegaly. 2. Mildly distended gallbladder with rounded soft tissue density in the gallbladder which may be related to sludge. Ultrasound suggested for further evaluation. 09/04/2018 right upper quadrant ultrasound IMPRESSION: Distended gallbladder with prominent gallbladder wall thickening and a small amount of pericholecystic fluid with some sludge in the gallbladder. These findings may be seen with acalculous cholecystitis. Hepatobiliary scan may be of further value for confirmation if clinically desired Laboratory Tests 09/01/18 09/01/18 09/01/18 14:50 14:50 14:50 WBC 25.1 H* RBC 5.62 Hgb 18.5 H* Hct 53.9 H MCV 96.0 H MCH 32.9 H Plt Count 335 Neut % (Auto) 83.9 H Lymph % (Auto) 9.1 L Neut # (Auto) 21.1 H Lymph # (Auto) 2.3 Deuel # (Auto) 1.6 H VBG pH VBG pCO2 VBG pO2 VBG HCO3 VBG Total CO2 VBG O2 Saturation VBG Base Excess Sodium 128 L Potassium 6.0 H Chloride 87 L Carbon Dioxide 8 L* Anion Gap 39.0 H BUN 34 H Creatinine 2.20 H Estimated Creat Clear 47 Estimated GFR 36 L Est GFR ( Amer) 43 L Glucose 780 H* Lactate Calcium 9.6 Phosphorus 7.8 H Magnesium 2.7 H Total Bilirubin 0.8 Direct Bilirubin Indirect Bilirubin AST 48 H ALT 189 H Alkaline Phosphatase 92 Troponin I < 0.02 Total Protein 8.8 H Albumin 4.9 Globulin 3.9 H Albumin/Globulin Ratio 1.3 Amylase Lipase 40 L 09/01/18 09/01/18 09/01/18 15:02 15:50 18:40 WBC RBC Hgb Hct MCV MCH Plt Count Neut % (Auto) Lymph % (Auto) Neut # (Auto) Lymph # (Auto) Deuel # (Auto) VBG pH 6.99 L VBG pCO2 29.0 L VBG pO2 108.0 H VBG HCO3 6.9 L VBG Total CO2 7.8 L VBG O2 Saturation 96.8 H VBG Base Excess -24.5 L Sodium 137 Potassium 4.4 D Chloride 99 Carbon Dioxide 17 L D Anion Gap 25.4 H BUN 30 H Creatinine 1.63 H D Estimated Creat Clear 60 Estimated GFR 51 L Est GFR ( Amer) Glucose 368 H D Lactate 5.3 H Calcium 8.0 L D Phosphorus Magnesium Total Bilirubin Direct Bilirubin Indirect Bilirubin AST ALT Alkaline Phosphatase Troponin I Total Protein Albumin Globulin Albumin/Globulin Ratio Amylase Lipase 09/01/18 09/02/18 09/03/18 19:55 09:18 06:14 WBC 11.6 H D RBC 4.58 L Hgb 14.6 D Hct 39.7 L MCV 86.7 MCH 31.8 H Plt Count 172 D Neut % (Auto) Lymph % (Auto) Neut # (Auto) Lymph # (Auto) Deuel # (Auto) VBG pH VBG pCO2 VBG pO2 VBG HCO3 VBG Total CO2 VBG O2 Saturation VBG Base Excess Sodium 141 Potassium 3.3 L Chloride 108 H Carbon Dioxide 30 D Anion Gap 6.3 BUN 10 Creatinine 0.96 Estimated Creat Clear 101 Estimated GFR 93 Est GFR ( Amer) 113 Glucose 92 D Lactate 1.1 Calcium Phosphorus Magnesium Total Bilirubin Direct Bilirubin Indirect Bilirubin AST ALT Alkaline Phosphatase Troponin I Total Protein Albumin Globulin Albumin/Globulin Ratio Amylase Lipase 09/03/18 09/03/18 09/03/18 06:14 06:14 06:14 WBC 6.7 D RBC 4.02 L Hgb 13.1 L D Hct 35.5 L MCV MCH Plt Count 125 L D Neut % (Auto) Lymph % (Auto) Neut # (Auto) Lymph # (Auto) Deuel # (Auto) VBG pH VBG pCO2 VBG pO2 VBG HCO3 VBG Total CO2 VBG O2 Saturation VBG Base Excess Sodium Potassium Chloride Carbon Dioxide Anion Gap BUN Creatinine Estimated Creat Clear Estimated GFR Est GFR ( Amer) Glucose Lactate Calcium Phosphorus Magnesium Total Bilirubin 0.6 Direct Bilirubin 0.2 Indirect Bilirubin 0.4 AST 29 D ALT 80 H Alkaline Phosphatase 35 L Troponin I Total Protein 5.3 L Albumin 2.8 L Globulin Albumin/Globulin Ratio Amylase 21 L Lipase 56 L Laboratory Tests 09/01/18 09/01/18 09/02/18 14:50 15:38 04:45 Urine Opiates Screen Negative Urine Methadone Screen Negative Ur Barbituates Screen Negative Ur Phencyclidine Scrn Negative Ur Amphetamines Screen Negative U Benzodiazepines Scrn Negative Urine Cocaine Screen Negative U Marijuana (THC) Screen Negative Acetone Level Moderate Large 09/02/18 09:18 Urine Opiates Screen Urine Methadone Screen Ur Barbituates Screen Ur Phencyclidine Scrn Ur Amphetamines Screen U Benzodiazepines Scrn Urine Cocaine Screen U Marijuana (THC) Screen Acetone Level Moderate DS: Diagnosis - Discharge Diagnosis (1) Diabetic ketoacidosis Status: Acute (2) Metabolic acidosis Status: Acute (3) Nausea and vomiting Status: Acute (4) Hyperkalemia Status: Acute (5) Leukocytosis Status: Acute (6) Cholecystitis without cholelithiasis Status: Acute (7) Diarrhea Status: Acute (8) History of drug abuse Status: Acute Discharge Plan - Patient Discharge Instructions ACTIVITY: Continue current activity DIET: diabetic diet Patient Instructions: DI for Hyperkalemia, DI for Diabetic Ketoacidosis - Follow up Plan Follow up with: Willian Hinojosa MD [Staff Physician] - 09/20/18 Disposition: Home, Self-Usp Medications: Home Medications Medication Instructions Recorded Confirmed Type Insulin NPH Human Isophane 12 unit SQ BID 09/01/18 09/01/18 History [Novolin N] Insulin Regular, Human [Novolin R] 0 unit SQ AC 09/01/18 09/02/18 History Hyoscyamine Sulfate [Levsin 0.125 mg PO QIDP PRN #90 tab.rapdis 09/05/18 Rx 0.125mg tablet] Omeprazole [Omeprazole 40mg 40 mg PO DAILY #30 cap 09/05/18 Rx Capsule] Potassium Chloride [K-Tab ER 20 20 meq PO DAILY #30 tab 09/05/18 Rx mEq] Prescriptions/Medication Reconciliation: New Potassium Chloride [K-Tab ER 20 mEq] 20 meq PO DAILY #30 tab Omeprazole [Omeprazole 40mg Capsule] 40 mg PO DAILY #30 cap Hyoscyamine Sulfate [Levsin 0.125mg tablet] 0.125 mg PO QIDP PRN #90 tab.rapdis PRN Reason: Cramping Continued Insulin Regular, Human [Novolin R] 0 unit SQ AC Insulin NPH Human Isophane [Novolin N] 12 unit SQ BID
== END 2018-09-05 11:28 | disposition home or self-care (01) | DRG 639 ==
LOC: ER 14:51 → 2ND 16:27
PROVIDERS: ADMIT Family Medicine; ATTEND Family Medicine
DX: R19.7 Diarrhea, unspecified; F19.11 Other psychoactive substance abuse, in remission; K81.9 Cholecystitis, unspecified; Z82.49 Family history of ischemic heart disease and other diseases of the circulatory system; Z79.4 Long term (current) use of insulin; E10.10 Type 1 diabetes mellitus with ketoacidosis without coma; Z83.3 Family history of diabetes mellitus; E87.5 Hyperkalemia; F17.210 Nicotine dependence, cigarettes, uncomplicated
CPT/HCPCS: 36415; 71010; 71045; 74150; 76705; 80048; 80053; 80076; 80305; 81001; 82009; 82150; 82803; 82962; 83605; 83690; 83735; 84100; 84484; 85007; 85025; 87040; 93005; 96365; 96367; 96375; 99285; J2405

== ENCOUNTER → 2018-09-06 10:40 | Outpatient (CLI) | payer BC, SELFPAY ==
--- NOTE | 2018-09-06 10:53 | NM_ITS ---
NM hepatobiliary w pharm HISTORY: Right upper quadrant pain, abnormal ultrasound suggesting possible a calculus cholecystitis ITS.REASON: RUQ PAIN ORDERING PHYSICIAN: Willian Hinojosa MD PATIENT AGE: 28 years COMPARISON: 09/04/2018 DOSE: 7.67 MCI TC Choletec 1.2 MCG cck INJ into RT ant FINDINGS: Homogeneous activity is present within the hepatic parenchyma. Activity is present in the gallbladder by 20 minutes. Activity is present in the small bowel by 15 minutes. The gallbladder ejection fraction is calculated to be 58% The patient did not report pain or other symptoms during CCK infusion. IMPRESSION: Unremarkable hepatobiliary scan and gallbladder ejection fraction. No evidence of common or cystic duct obstruction with normal gallbladder ejection fraction
--- NOTE | 2018-09-06 11:24 | HMH.ITSHM ---
Current Home Medications as stated by this patient Helder Naranjo or payable representative. []POTASSIUM OMEPRAZOLE LEVSIN INSULIN
== END ==
PROVIDERS: Visit Provider Family Medicine
DX: K81.9 Cholecystitis, unspecified
CPT/HCPCS: 78227; A9537; J2805